=== PATIENT | female | born 1970 | race Caucasian/White ===

== ENCOUNTER 2021-08-12 20:51 | Observation (INO) | payer BC ==
[2021-08-12] MEDS ORDERED: Senokot S 8.6-50 MG TAB PO PRN (21:46)
[2021-08-12] MEDS ORDERED: Acetaminophen 325 MG TAB PO PRN (21:46)
[2021-08-12 22:19] LABS: Troponin I Less than 0.010 ng/mL (< 0.028)
[2021-08-12] MEDS ORDERED: Sodium Chloride 0.9% 1,000 ML IV SCH (22:30)
[2021-08-12 22:54] VITALS: BMI 52.0
[2021-08-12] MEDS ORDERED: Enoxaparin Sodium 40 MG/0.4 ML SYRINGE SC SCH (23:00)
[2021-08-12] MEDS ORDERED: Enoxaparin Sodium 100 MG/ML SYRINGE SC SCH (23:00)
[2021-08-12] MEDS ORDERED: Dextrose 5% in Water 1,000 ML IV PRN (23:22)
[2021-08-12] MEDS ORDERED: HumaLOG 300 UNITS/3 ML VIAL SC PRN (23:22)
[2021-08-12] MEDS ORDERED: Dextrose 50% Abboject 50 ML SYRINGE SLOW IVP PRN (23:22)
[2021-08-13 01:55] LABS: Troponin I Less than 0.010 ng/mL (< 0.028)
[2021-08-13 04:56] LABS: #Eosinphils 0.2 thou/uL (0.0-0.7); #Lymphocytes 2.4 thou/uL (1.20-3.40); #Monocytes 0.6 thou/uL (0.11-0.59); #Neutrophils 4.2 thou/uL (1.40-6.50); %Basophils 0.2 % (0.0-1.0); %Eosinophils 3.3 % (0.0-10.0); %Lymphocytes 32.3 % (21.0-51.0); %Monocytes 8.3 % (0.0-10.0); %Neutrophils 55.9 % (42.0-75.0); Hemoglobin 14.4 g/dL (12.0-16.0); Mean Corpuscular Volume 97.3 fL (78.0-98.0); Platelet Count 145 thou/uL (130-400); RBC Distribution Width 12.2 % (11.5-14.5); Red Blood Cell (RBC) Count 4.12 mill/uL (4.20-5.40); White Blood Cell (WBC) Count 7.5 thou/uL (4.8-10.8)
[2021-08-13 05:47] LABS: Troponin I Less than 0.010 ng/mL (< 0.028)
[2021-08-13 06:00] LABS: Anion Gap 12 mmol/L (10-20); BUN (Urea Nitrogen) 14 mg/dL (9.8-20.1); Calc. Creatinine Clearance 159 mL/min (70-130); Carbon Dioxide 25 mmol/L (22-29); Cardiac Risk 2.8 (Less than 4.5); Chloride 105 mmol/L (98-107); Cholesterol 116 mg/dl (< 200 Desired); Glucose 192 mg/dL (70-105); HDL Cholesterol 41 mg/dL (>60 Neg Risk); LDL Cholesterol, Calculated 62 mg/dL; Potassium 3.4 mmol/L (3.5-5.1); Sodium 139 mmol/L (136-145); Triglycerides 63 mg/dL (Less than 150)
[2021-08-13 07:01] VITALS: TEMP 98.1
[2021-08-13] MEDS ORDERED: Famotidine 20 MG TAB PO SCH (09:00)
[2021-08-13] MEDS ORDERED: Enoxaparin Sodium 100 MG/ML SYRINGE SC SCH (09:00)
[2021-08-13] MEDS ORDERED: Enoxaparin Sodium 40 MG/0.4 ML SYRINGE SC SCH ×2 (09:00)
[2021-08-13 10:57] VITALS: BP 138/88
[2021-08-13 17:09] LABS: SARS-CoV-2 PCR by NAA Not Detected (NotDetected)
== END 2021-08-13 15:30 | disposition home or self-care (01) ==
LOC: ERS 20:51 → 2SW 21:48
PROVIDERS: ADMIT Family Medicine; ATTEND Family Medicine
DX: R07.9 Chest pain, unspecified (principal); I10 Essential (primary) hypertension; E78.5 Hyperlipidemia, unspecified; E11.9 Type 2 diabetes mellitus without complications; E03.9 Hypothyroidism, unspecified; E66.01 Morbid (severe) obesity due to excess calories; Z68.43 Body mass index [BMI] 50.0-59.9, adult; Z87.891 Personal history of nicotine dependence; Z79.84 Long term (current) use of oral hypoglycemic drugs; Z79.890 Hormone replacement therapy; Z79.899 Other long term (current) drug therapy; Z20.822 Contact with and (suspected) exposure to COVID-19
CPT/HCPCS: 36415; 36416; 80048; 80061; 84443; 84484; 85025; 96372; G0378; J1650; J7050; U0003; U0005

== ENCOUNTER 2023-08-25 10:30 | Outpatient (CLI) | payer BC ==
[2023-08-25 11:29] LABS: #Basophils 0.02 10x3/uL (0.0-0.2); #Eosinphils 0.19 10x3/uL (0.0-0.5); #Monocytes 0.32 10x3/uL (0.0-1.1); #Neutrophils 3.85 10x3/uL (1.5-8.4); %Basophils 0.3 % (0.0-2.0); %Lymphocytes 30.5 % (18.0-47.0); %Monocytes 5.1 % (0.0-10.0); %Neutrophils 60.8 % (40.0-75.0); Hematocrit 42.7 % (34.9-44.5); Hemoglobin 15.2 g/dL (12.0-15.5); Mean Corpuscular HGB CONC 35.6 g/dL (32.0-36.0); Mean Corpuscular Hemoglobin 32.6 pg (27.0-33.0); Mean Corpuscular Volume 91.6 fL (81.6-98.3); Mean Platelet Volume 10.5 fL (7.4-10.4); Platelet Count 171 10x3/uL (150-450); RBC Distribution Width 12.4 % (11.5-14.5); Red Blood Cell (RBC) Count 4.66 10x6/uL (3.90-5.03); White Blood Cell (WBC) Count 6.3 10x3/uL (3.5-10.5)
[2023-08-25 11:50] LABS: Anion Gap 14 mmol/L (10-20); BUN (Urea Nitrogen) 17 mg/dL (9.8-20.1); Calc. Creatinine Clearance 0 mL/min (70-130); Calcium 9.4 mg/dL (7.8-10.44); Carbon Dioxide 24 mmol/L (22-29); Chloride 102 mmol/L (98-107); Estimated GFR 59; Glucose 219 mg/dL (70-105); Potassium 3.8 mmol/L (3.5-5.1); Sodium 136 mmol/L (136-145)
== END 2023-08-25 10:31 | disposition home or self-care (01) ==
LOC: LABBT 10:30
PROVIDERS: ATTEND Orthopaedic Surgery
DX: Z01.812 Encounter for preprocedural laboratory examination (principal); S46.012A Strain of muscle(s) and tendon(s) of the rotator cuff of left shoulder, initial encounter
CPT/HCPCS: 80048; 85025

== ENCOUNTER 2023-09-03 05:30 | Day surgery (SDC) | payer BC ==
[2023-08-25 10:54] VITALS: BMI 51.0
[2023-09-03] MEDS ORDERED: Dexamethasone 4 mg/ml Vial ONE (06:17)
[2023-09-03] MEDS ORDERED: Rocuronium Bromide 10 MG/ML (10ML VIAL) ONE (06:17)
[2023-09-03] MEDS ORDERED: fentaNYL PF 100 MCG/2 ML SYRINGE ONE (06:17)
[2023-09-03] MEDS ORDERED: Lidocaine 1% PF 5 ML VIAL ONE (06:17)
[2023-09-03] MEDS ORDERED: Ondansetron PF 4 MG/2 ML Vial ONE ×2 (06:17→11:08)
[2023-09-03] MEDS ORDERED: PROPOFOL 20 ML ONE (06:17)
[2023-09-03] MEDS ORDERED: SUGAMMADEX SODIUM 200 MG/2 ML VIAL ONE ×2 (06:18→09:41)
[2023-09-03] MEDS ORDERED: fentaNYL 50 mcg/mL 1 mL Vial ONE (06:36)
[2023-09-03] MEDS ORDERED: Midazolam HCl 2 mg/2 ml Vial ONE (06:37)
[2023-09-03] MEDS ORDERED: Bupivacaine 0.25% HCL 30 ML VIAL ONE (06:55)
[2023-09-03] MEDS ORDERED: EPINEPHrine 1 MG/ML VIAL ONE (07:01)
[2023-09-03] MEDS ORDERED: CEFAZOLIN 2 GM VIAL ONE (07:02)
[2023-09-03] MEDS ORDERED: Lidocaine 1% (PF) 30 ML VIAL ONE (07:02)
[2023-09-03] MEDS ORDERED: Sodium Chloride 0.9% 100 ML ONE (07:02)
[2023-09-03] MEDS ORDERED: PHENYLEPHRINE-NS 100 MCG/ML 10 ML SYRINGE ONE (07:09)
[2023-09-03] MEDS ORDERED: SUCCINYLCHOLINE/SOD CL,ISO/PF 200 MG/10 ML SYRINGE FS ONE (07:29)
[2023-09-03] MEDS ORDERED: Promethazine HCl 25 MG/ML VIAL IM PRN (08:15)
[2023-09-03] MEDS ORDERED: Zolpidem Tartrate 5 MG TAB PO PRN (08:15)
[2023-09-03] MEDS ORDERED: Ondansetron PF 4 MG/2 ML Vial IVP PRN (08:15)
[2023-09-03] MEDS ORDERED: HYDROcodone/Acetaminophen 10/325 mg Tablet PO PRN ×2 (08:15)
[2023-09-03] MEDS ORDERED: Ropivacaine 0.2% 550 ML 550 ML NERVE BLCK SCH (08:15)
[2023-09-03] MEDS ORDERED: traMADol HCl 50 MG TAB PO PRN ×2 (08:15)
[2023-09-03] MEDS ORDERED: Phenylephrine 10 MG/ML VIAL ONE (08:17)
[2023-09-03] MEDS ORDERED: Ketorolac Tromethamine 30 MG (1 mL) VIAL ONE (09:19)
[2023-09-03] MEDS ORDERED: fentaNYL 50 mcg/mL 1 mL Vial SLOW IVP SCH (09:45)
[2023-09-03] MEDS ORDERED: Midazolam HCl 2 mg/2 ml Vial IVP SCH (09:45)
[2023-09-03] MEDS ORDERED: Ketorolac Tromethamine 30 MG (1 mL) VIAL IVP SCH (12:00)
== END 2023-09-03 12:50 | disposition home or self-care (01) ==
LOC: SDC 05:30
PROVIDERS: ATTEND Orthopaedic Surgery
PROC: 0LM24ZZ Reattachment of Left Shoulder Tendon, Percutaneous Endoscopic Approach (ICD-10-PCS; principal; 2023-09-03)
PROC: 0RBK4ZZ Excision of Left Shoulder Joint, Percutaneous Endoscopic Approach (ICD-10-PCS; principal; 2023-09-03)
PROC: 3E0T3BZ Introduction of Anesthetic Agent into Peripheral Nerves and Plexi, Percutaneous Approach (ICD-10-PCS; principal; 2023-09-03)
DX: S46.012A Strain of muscle(s) and tendon(s) of the rotator cuff of left shoulder, initial encounter (principal); S43.432A Superior glenoid labrum lesion of left shoulder, initial encounter; M19.012 Primary osteoarthritis, left shoulder; E11.9 Type 2 diabetes mellitus without complications; I10 Essential (primary) hypertension; E78.00 Pure hypercholesterolemia, unspecified; E07.9 Disorder of thyroid, unspecified; Z96.652 Presence of left artificial knee joint; Z87.891 Personal history of nicotine dependence; Z79.899 Other long term (current) drug therapy; Z79.890 Hormone replacement therapy; W19.XXXA Unspecified fall, initial encounter
CPT/HCPCS: A4306; C1713; J0171; J0665; J1100; J1885; J2001; J2250; J2371; J2405; J2704; J2795; J3010; J3490

== ENCOUNTER 2024-02-23 14:42 | Outpatient (CLI) | payer BC | END 2024-02-23 14:43 | disposition home or self-care (01) | LOC: BICMAMMO 14:42 | PROVIDERS: ATTEND Family Medicine | DX: Z12.31 Encounter for screening mammogram for malignant neoplasm of breast (principal) | CPT/HCPCS: 77063; 77067 ==